=== PATIENT | female | born 1990 | race Caucasian/White ===

== ENCOUNTER 2017-08-06 16:41 | Emergency (ER) | payer BC, OTHER ==
--- NOTE | 2017-08-06 17:32 | ER Document Report ---
ED Medical Screen (RME) - General Mode of Arrival: Ambulatory Information source: Patient TRAVEL OUTSIDE OF THE [place] IN LAST 30 DAYS: No <YADIRA NIXON - Last Filed: 08/06/17 18:24> <JOHN DUKES - Last Filed: 08/06/17 18:57> <ROMMEL RUIZ - Last Filed: 08/06/17 19:10> - General Chief Complaint: Abdominal Pain Stated Complaint: ABDOMINAL PAIN Time Seen by Provider: 08/06/17 17:19 Notes: Patient is a 27 year old female presenting to the emergency department to have IUD removed. Patient states that she was recently diagnosed with PID after having symptoms of painful intercourse and pelvic pain and told to have her IUD removed as soon as possible. At bedside patient states that she would like to have her IUD removed as she plans to abstain from sex for a month or two due to having been recently diagnosed with PID. Patient has been treated with an IM shot and given 2 pills to take for the next two weeks. (YADIRA NIXON) - Related Data Allergies/Adverse Reactions: Penicillins Allergy (Verified 08/01/12 09:47) Hives shellfish derived Allergy (Verified 08/06/17 16:42) Sulfa (Sulfonamide Antibiotics) Allergy (Verified 08/01/12 09:47) Hives NUTS Allergy (Mild, Uncoded 08/04/12 11:15) TONGUE SWELLING WITH INGESTION OF NUTS Past Medical History - Past Medical History Cardiac Medical History: Denies: Hx Heart Attack, Hx Hypertension Pulmonary Medical History: Reports: Hx Asthma - IN HIGH SCHOOL/NO INHALERS FOR SEVERAL YRS Neurological Medical History: Denies: Hx Cerebrovascular Accident, Hx Seizures Renal/ Medical History: Denies: Hx Peritoneal Dialysis GI Medical History: Denies: Hx Hepatitis, Hx Hiatal Hernia, Hx Ulcer Infectious Medical History: Denies: Hx Hepatitis Past Surgical History: Denies: Hx Hysterectomy, Hx Mastectomy, Hx Open Heart Surgery, Hx Pacemaker <YADIRA NIXON - Last Filed: 08/06/17 18:24> - General Information source: Patient - Social History Cigarette use (# per day): No Chew tobacco use (# tins/day): No Frequency of alcohol use: Rare Drug Abuse: None Lives with: Family Family history: Reviewed & Not Pertinent <JOHN DUKES - Last Filed: 08/06/17 18:57> Review of Systems - Review of Systems Constitutional: No symptoms reported EENT: No symptoms reported Cardiovascular: No symptoms reported Respiratory: No symptoms reported Gastrointestinal: No symptoms reported Genitourinary: No symptoms reported Female Genitourinary: See HPI Musculoskeletal: No symptoms reported Skin: No symptoms reported Hematologic/Lymphatic: No symptoms reported Neurological/Psychological: No symptoms reported -: Yes All other systems reviewed and negative <JOHN DKUES - Last Filed: 08/06/17 18:57> Physical Exam <YADIRA NIXON - Last Filed: 08/06/17 18:24> - Vital signs Interpretation: Normal - General General appearance: Other - Uncomfortable appearing In distress: None - Respiratory Respiratory status: No respiratory distress Chest status: Nontender Breath sounds: Normal. No: Decreased air movement, Nonproductive cough, Productive cough, Rales, Rhonchi, Stridor, Wheezing, Other Chest palpation: Normal - Cardiovascular Rhythm: Regular Heart sounds: Normal auscultation Murmur: No - Abdominal Inspection: Normal Distension: No distension Bowel sounds: Normal Tenderness: Tender Organomegaly: No organomegaly - Genitourinary External exam: Normal Speculum exam: Cervix closed, Other - Speculum exam did show that there was a string barely hanging outside of the office. After a couple of attempts we are able to grab the end of the string and with one easy pull the IUD came out without any complications. It was a surprise for the patient that it popped out so easily as well as the provider. There was no blood afterwards and patient felt already better. Vaginal bleeding: None Bimanuel exam: Other - Deferred - Skin Skin Temperature: Warm Skin Moisture: Dry Skin Color: Normal, Edwards <JOHN DUKES - Last Filed: 08/06/17 18:57> <ROMMEL RUIZ - Last Filed: 08/06/17 19:10> - Vital signs Vitals: Temp Pulse Resp BP Pulse Ox 97.9 F 94 18 128/70 H 98 08/06/17 16:46 08/06/17 16:46 08/06/17 16:46 08/06/17 16:46 08/06/17 16:46 - Notes Notes: GENERAL: Alert, interacts well. No acute distress. (YADIRA NIXON) As stated in the H&P patient has been diagnosed with an STD and is being treated completely with Rocephin shot and 2 antibiotics orally. She was sent to the emergency room for a removal of IUD. She has had the IUD in approximately 2 years and she states has had problems with it ever since and this is the second time she has had STDs associated with the IUD. (JOHN DUKES) Course <YADIRA NIXON - Last Filed: 08/06/17 18:24> <JOHN DUKES - Last Filed: 08/06/17 18:57> <ROMMEL RUIZ - Last Filed: 08/06/17 19:10> - Re-evaluation Re-evalutation: 08/06/17 19:09 I did see this patient in conjunction with the nurse practitioner John Dukes. I agree with the plan of care to remove the IUD from this patient who has been recently diagnosed with PID. Patient was given the option of keeping it in a being rechecked in 48-72 hours or having it removed, she chooses to have it removed. Patient was in no acute distress on physical examination, abdomen was benign. Patient will continue to take her antibiotics for PID and was discharged home after IUD removal which she tolerated well. (ROMMEL RUIZ) - Vital Signs Vital signs: Temp Pulse Resp BP Pulse Ox 97.5 F 67 18 118/62 100 08/06/17 19:08 08/06/17 19:08 08/06/17 19:08 08/06/17 19:08 08/06/17 19:08 - Transfer of Care Notes: 08/06/17 19:02 As stated earlier patient is being treated for STD with antibiotics orally and injectable. We have removed the IUD secondary to a MD's request that it be pulled as soon as possible. There were no complications with pulling the IUD out. Patient felt much better. She will continue on with her all of antibiotics until finished have been instructed not to have any sexual intercourse until at least the antibiotics were finished and then were reminded that she is no longer protected so they will need to find another control method. (JOHN DUKES) Doctor's Discharge <YADIRA NIXON - Last Filed: 08/06/17 18:24> <JOHN DUKES - Last Filed: 08/06/17 18:57> <ROMMEL RUIZ - Last Filed: 08/06/17 19:10> - Discharge Clinical Impression: Pelvic pain, Encounter for IUD removal Condition: Good Disposition: HOME, SELF-CARE Additional Instructions: Remove the IUD was uncomplicated and should have no problems after removal of the IUD. There are some certain things she should work out for it which would be a heavy bleeding or severe discomfort and pain spike fevers any concerns at all return to ER for recheck. Continue with all of your antibiotics and finish them all as directed. Avoid intercourse until antibiotics are finished. I venture to say that since you already know you are taking meds for an STD that both parties should be treated. And remembering that after antibiotics have been completed and before you have intercourse again remember you are unprotected at this time. Should you have any concerns or problems return to ER for recheck. Referrals: MANAN ROSSI MD [Primary Care Provider] - Follow up as needed Scribe Documentation - Scribe Written by Karla:: Karla Adames, 08/06/2017 17:37 acting as scribe for :: Veto <YADIRA NIXON - Last Filed: 08/06/17 18:24>
[2017-08-06 19:08] VITALS: BP 118/62
== END 2017-08-06 19:14 | disposition home or self-care (01) ==
LOC: ER 16:41
DX: Z30.432 Encounter for removal of intrauterine contraceptive device (principal); R10.2 Pelvic and perineal pain
CPT/HCPCS: 99283